=== PATIENT | male | born 1950 | race Caucasian/White ===

== ENCOUNTER 2019-01-29 11:13 | Emergency (ER) | payer OTHER ==
--- NOTE | 2019-01-29 11:18 | PDOC ---
History of Present Illness - General Chief Complaint: Sore Throat Stated Complaint: sore throat and chest congestion Time Seen by Provider: 01/29/19 11:15 History Source: Patient Exam Limitations: No Limitations - History of Present Illness Initial Comments: 01/29/19 12:13 Patient is a 68M with history of eczema (on Dupilumab -IL4 inhibitor) here today complaining of cough for 1 day. Patient complains of associated subjective fevers, chills, and pain in chest with coughing. Denies shortness of breath. Has +sick contact in nephew. Denies abdominal pain, dysuria, leg swelling, history of blood clots. Past History - Past Medical History Allergies/Adverse Reactions: Allergies Allergy/AdvReac Type Severity Reaction Status Date / Time No Known Allergies Allergy Verified 01/29/19 11:14 Home Medications: Ambulatory Orders Amox-Tr/K Cl [Augmentin - 875Mg Tablet] 1 tab PO BID #14 tablet 01/29/19 Doxycycline Hyclate 100 mg PO BID #14 tablet 01/29/19 Review of Systems - Review of Systems Able to Perform ROS?: Yes Comments:: 01/29/19 12:16 GENERAL/CONSTITUTIONAL: No fever or chills. No weakness. HEAD, EYES, EARS, NOSE AND THROAT: No change in vision. No sore throat. CARDIOVASCULAR: No chest pain or shortness of breath RESPIRATORY: +cough, no wheezing, or hemoptysis. GASTROINTESTINAL: No nausea, vomiting, diarrhea or constipation. GENITOURINARY: No dysuria, frequency, or change in urination. MUSCULOSKELETAL: No joint or muscle swelling or pain. No neck or back pain. SKIN: No rash NEUROLOGIC: No headache, vertigo, loss of consciousness, or change in strength/ sensation. ENDOCRINE: No increased thirst. No abnormal weight change HEMATOLOGIC/LYMPHATIC: No anemia, easy bleeding, or history of blood clots. ALLERGIC/IMMUNOLOGIC: No hives or skin allergy. *Physical Exam - Physical Exam Comments: 01/29/19 12:17 GENERAL: Awake, alert, and fully oriented, in no acute distress, coughing HEAD: No signs of trauma, normocephalic, atraumatic EYES: PERRLA, EOMI, sclera anicteric, conjunctiva clear ENT: Auricles normal inspection, hearing grossly normal, nares patent, oropharynx clear without exudates. Moist mucosa NECK: Normal ROM, supple, no lymphadenopathy, JVD, or masses LUNGS: No distress, speaks full sentences, clear to auscultation bilaterally HEART: Regular rate and rhythm, normal S1 and S2, no murmurs, rubs or gallops, peripheral pulses normal and equal bilaterally. ABDOMEN: Soft, nontender, normoactive bowel sounds. No guarding, no rebound. No masses EXTREMITIES: Normal inspection, Normal range of motion, no edema. No clubbing or cyanosis. NEUROLOGICAL: Cranial nerves II through XII grossly intact. Normal speech, normal gait, no focal sensorimotor deficits SKIN: Warm, Dry, normal turgor, no rashes or lesions noted. ED Treatment Course - LABORATORY CBC & Chemistry Diagram: 01/29/19 11:52 01/29/19 11:52 Medical Decision Making - Medical Decision Making 01/29/19 12:17 Patient is 68M with history of eczema here today with cough, some chest pain. Vitals normal and stable. Chest pain atypical for cardiac issue, but given patient's age will evaluate. Blood cultures drawn due to immunologic drug. 01/29/19 12:45 CBC shows leukocytosis CMP reassuring. Trop negative EKG shows NSR with rate of 77. No st elevation/depressions. Normal axis. Normal intervals. No significant t wave abnormalities. CXR shows increased lung markings concerning for atypical pneumonia. Given WBC, CXR, cough and ?immunocompromised state, will cover with augmentin and doxy. 01/29/19 12:52 Given return precautions, instructed to f/u with PCP in 2-3 days. *DC/Admit/Observation/Transfer Diagnosis at time of Disposition: Pneumonia - Discharge Dispostion Disposition: HOME Condition at time of disposition: Good Decision to Admit order: No - Prescriptions Prescriptions: Amox-Tr/K Cl [Augmentin - 875Mg Tablet] 1 tab PO BID #14 tablet Doxycycline Hyclate 100 mg PO BID #14 tablet - Referrals Referrals: Isidro Perea MD [Primary Care Provider] - - Patient Instructions Printed Discharge Instructions: DI for Pneumonia -- Adult Additional Instructions: Please follow up with your primary care provider in the next 2-3 days. Please return if you have any new, worsening or concerning symptoms, especially increasing pain, fever, and shortness of breath. - Post Discharge Activity
[2019-01-29 11:25] VITALS: TEMP 98.1; BMI 25.7
--- NOTE | 2019-01-29 11:33 | PDOC ---
Attending Attestation - Resident Resident Name: MarklexisMicah - ED Attending Attestation I have performed the following: I have examined & evaluated the patient, The case was reviewed & discussed with the resident, I agree w/resident's findings & plan, Exceptions are as noted - HPI HPI: 01/29/19 11:32 68y M hx kun croft presents with complaint of uri like symptoms for a day and malaise. Pt notes to increased cough, congtesion since eysterday. The pt endorses mild chest tightness when he coughs, but non otherwise, endorses subjective fever/chills yesterday. Denies any hemoptysis, cp/sob on exertion, n/ v, diaphoresis, abd pain, back pain, leg swelling, calf pain, urinary symptoms, diarrhea, melena, bpr. Pt endorses sick contacts through his nephew who had URI like symptoms. PMD Gair - Physicial Exam PE: 01/29/19 12:03 GENERAL: The patient is awake, alert, and fully oriented, Nontoxic - in no acute distress. HEAD: Normocephalic, atraumatic. EYES: extraocular movements intact, sclera anicteric, conjunctiva clear. ENT: Normal voice, Moist mucous membranes. NECK: Normal range of motion, supple LUNGS: Breath sounds equal, clear to auscultation bilaterally. No wheezes, no rhonchi, no rales. HEART: Regular rate and rhythm, normal S1 and S2 without murmur, rub or gallop. ABDOMEN: Soft, nontender, normoactive bowel sounds. No guarding, no rebound. . No CVA tenderness EXTREMITIES: Normal range of motion, no edema. NEUROLOGICAL: No facial assymetry, Normal speech, PSYCH: Normal mood, normal affect. SKIN: Warm, Dry, normal turgor - Medical Decision Making 01/29/19 12:03 suspect viral syndome vs pna vs influenza will ck labs, cxr will reassess 01/29/19 12:57 pts labs reviewed noted for leukocytosis of 15 with left shift no signs of over pneumonic process on cxr though will treat pt with course of abx for clinical pna will have pt fu with pmd return precautions were discussed
[2019-01-29 12:02] LABS: BASO % 1.5 % (0-2.0); EOS % 0.4 % (0-4.5); HEMATOCRIT 45.6 % (35.4-49); HEMOGLOBIN 15.2 GM/dl (11.7-16.9); LYMPH % 10.1 % (8-40); MCH 30.7 pg (25.7-33.7); MCHC 33.3 g/dl (32.0-35.9); MEAN CELL VOLUME 92.2 fl (80-96); MEAN PLT VOLUME 7.9 fl (7.5-11.1); PLATELET COUNT 255 K/MM3 (134-434); RBC 4.94 M/mm3 (4.00-5.60); WHITE BLOOD COUNT 15.5 K/mm3 (4.0-10.8)
[2019-01-29 12:14] VITALS: BP 152/90; PULSE 85
[2019-01-29 12:24] LABS: ALBUMIN 3.8 g/dl (3.4-5.0); ALK PHOS 67 U/L (45-117); ANION GAP 9 MMOL/L (8-16); BILIRUBIN,TOTAL 1.4 mg/dl (0.2-1); BLOOD UREA NITROGEN 15 mg/dl (7-18); CALCIUM 8.8 mg/dl (8.5-10); CHLORIDE 100 mmol/L (98-107); CO2 22 mmol/L (21-32); CREATININE 0.9 mg/dl (0.55-1.3); GLUCOSE,RANDOM 142 mg/dl (74-106); POTASSIUM 3.7 mmol/L (3.5-5.1); SGOT/AST 27 U/L (15-37); SGPT/ALT 21 U/L (13-61); SODIUM 131 mmol/L (136-145); TOT PROT 7.6 g/dl (6.4-8.2)
[2019-01-29 12:29] LABS: INR 1.21 (0.82-1.09); PROTHROMBIN TIME (PATIENT) 13.5 SEC (10.2-13.0)
--- NOTE | 2019-01-29 12:35 | EKG ---
Test Reason : Blood Pressure : / mmHG Vent. Rate : 077 BPM Atrial Rate : 077 BPM P-R Int : 156 ms QRS Dur : 082 ms QT Int : 362 ms P-R-T Axes : 076 -28 061 degrees QTc Int : 409 ms NORMAL SINUS RHYTHM NORMAL ECG WHEN COMPARED WITH ECG OF 29-OCT-1997 10:31, NO SIGNIFICANT CHANGE WAS FOUND Confirmed by MAURICIO SIERRA MD ([id number]) on 01/29/2019 12:35:44 PM Referred By: SHANNON SPEARS Confirmed By:MAURICIO SIERRA MD
[2019-01-29] MEDS ORDERED: AMOX TR/POT CLAV 875MG/125MG TABLETS (FP) PO ONE (12:51)
[2019-01-29] MEDS ORDERED: DOXYCYCLINE HYCLATE 100 MG CAPSULE PO ONE ×2 (12:51→12:53)
[2019-01-29] MEDS ORDERED: AMOX TR/POT CLAV 875MG/125MG TABLETS (FP) ONE (12:53)
== END 2019-01-29 13:00 | disposition home or self-care (01) ==
LOC: FER 11:13
DX: J18.9 Pneumonia, unspecified organism (principal); L30.9 Dermatitis, unspecified
CPT/HCPCS: 36415; 71046-TC-FY; 80053; 84484; 85025; 85610; 87040; 93005; 99282-25

== ENCOUNTER 2021-05-15 07:13 | Inpatient (IN) | payer OTHER ==
[2021-05-15 07:35] VITALS: BMI 25.7
[2021-05-15 08:06] LABS: EOS % 4.5 % (0-4.5); HEMATOCRIT 42.1 % (35.4-49); HEMOGLOBIN 14.7 GM/dl (11.7-16.9); LYMPH % 32.3 % (8-40); MCH 31.8 pg (25.7-33.7); MEAN CELL VOLUME 91.1 fl (80-96); MEAN PLT VOLUME 8.1 fl (7.5-11.1); MONO % 9.5 % (3.8-10.2); NEUT % 52.7 % (42.8-82.8); PLATELET COUNT 263 10^3/uL (134-434); RBC 4.62 M/mm3 (4.00-5.60); RDW 12.8 % (11.9-15.9); WHITE BLOOD COUNT 6.4 K/mm3 (4.0-10.8)
[2021-05-15 08:23] LABS: ALBUMIN 4.3 g/dl (3.4-5.0); ALK PHOS 55 U/L (45-117); ANION GAP 15 MMOL/L (8-16); BILIRUBIN,TOTAL 1.8 mg/dl (0.2-1); CALCIUM 9.2 mg/dl (8.5-10); CHLORIDE 101 mmol/L (98-107); CHOLESTEROL 260 mg/dl (50-200); CO2 21 mmol/L (21-32); CREATININE 0.9 mg/dl (0.55-1.3); GLUCOSE,RANDOM 165 mg/dl (74-106); HDL CHOLESTEROL 68 mg/dl (40-60); LDL CHOLESTEROL (ONLY DFH) 177 mg/dl (5-100); SGOT/AST 17 U/L (15-37); SGPT/ALT 14 U/L (13-61); SODIUM 137 mmol/L (136-145); TOT PROT 7.6 g/dl (6.4-8.2); TRIGLYCERIDES 73 mg/dl (0-150)
[2021-05-15 08:29] LABS: ACTIVATED PTT 28.9 SECONDS (25.2-36.5); INR 1.07 (0.82-1.09); PROTHROMBIN TIME (PATIENT) 11.9 SEC (10.2-13.0)
[2021-05-15] MEDS ORDERED: SODIUM CHLORIDE 0.9% 500 ML INFUS.BAG IV ONE (11:31)
[2021-05-15] MEDS ORDERED: ATORVASTATIN CA 80 MG TABLET (FP) PO ONE (11:45)
[2021-05-15] MEDS ORDERED: ATORVASTATIN CA 80 MG TABLET (FP) ONE (12:02)
[2021-05-15] MEDS ORDERED: ASPIRIN/DIPYRIDAMOLE 25 MG/200 MG CAPSULE PO ONE (19:34)
[2021-05-16 07:51] LABS: ALBUMIN 3.6 g/dl (3.4-5.0); BLOOD UREA NITROGEN 13.3 mg/dL (7-18); CALCIUM 8.5 mg/dL (8.5-10.1); CREATININE 0.9 mg/dL (0.55-1.3); MAGNESIUM 1.9 mg/dL (1.8-2.4)
[2021-05-16 07:53] LABS: BILIRUBIN,TOTAL 1.3 mg/dL (0.2-1); TOT PROT 6.9 g/dl (6.4-8.2)
[2021-05-16 08:11] LABS: BASO % 0.6 % (0-2.0); EOS % 3.1 % (0-4.5); HEMATOCRIT 41.4 % (35.4-49); HEMOGLOBIN 14.3 GM/dL (11.7-16.9); LYMPH % 21.9 % (8-40); MCH 31.2 pg (25.7-33.7); MCHC 34.5 g/dl (32.0-35.9); MEAN CELL VOLUME 90.5 fl (80-96); MEAN PLT VOLUME 7.9 fl (7.5-11.1); MONO % 6.9 % (3.8-10.2); NEUT % 67.5 % (42.8-82.8); PLATELET COUNT 254 10^3/uL (134-434); RBC 4.57 M/mm3 (4.00-5.60); RDW 13.6 % (11.9-15.9); WHITE BLOOD COUNT 6.9 K/mm3 (4.0-10.0)
[2021-05-16] MEDS ORDERED: PT OWN MED DRAWER 7, Y5N ONE (21:11)
[2021-05-16] MEDS: ATORVASTATIN CA 80 MG TABLET (FP) PO SCH (21:46)
[2021-05-16] MEDS: ASPIRIN/DIPYRIDAMOLE 25 MG/200 MG CAPSULE PO SCH (21:46)
[2021-05-17 06:40] LABS: BASO % 0.5 % (0-2.0); EOS % 1.5 % (0-4.5); HEMATOCRIT 42.4 % (35.4-49); HEMOGLOBIN 14.6 GM/dL (11.7-16.9); LYMPH % 10.5 % (8-40); MCH 31.3 pg (25.7-33.7); MCHC 34.3 g/dl (32.0-35.9); MEAN PLT VOLUME 8.1 fl (7.5-11.1); MONO % 5.4 % (3.8-10.2); NEUT % 82.1 % (42.8-82.8); PLATELET COUNT 254 10^3/uL (134-434); RBC 4.66 M/mm3 (4.00-5.60); RDW 13.8 % (11.9-15.9); WHITE BLOOD COUNT 10.9 K/mm3 (4.0-10.0)
[2021-05-17 07:24] LABS: ALBUMIN 3.6 g/dl (3.4-5.0); BLOOD UREA NITROGEN 18.6 mg/dL (7-18); CALCIUM 8.6 mg/dL (8.5-10.1)
[2021-05-17 07:26] LABS: BILIRUBIN,TOTAL 1.3 mg/dL (0.2-1); CREATININE 0.9 mg/dL (0.55-1.3)
[2021-05-17] MEDS ORDERED: PT OWN MED DRAWER 7, Y5N ONE ×2 (09:31→20:31)
[2021-05-17] MEDS: ASPIRIN/DIPYRIDAMOLE 25 MG/200 MG CAPSULE PO SCH ×2 (10:06→21:28)
[2021-05-17] MEDS: ATORVASTATIN CA 80 MG TABLET (FP) PO SCH (21:28)
[2021-05-18] MEDS: ASPIRIN/DIPYRIDAMOLE 25 MG/200 MG CAPSULE PO SCH ×2 (09:36→21:20)
[2021-05-18] MEDS ORDERED: PT OWN MED DRAWER 7, Y5N ONE (21:14)
[2021-05-18] MEDS: ATORVASTATIN CA 80 MG TABLET (FP) PO SCH (21:20)
[2021-05-19 06:58] LABS: BASO % 0.7 % (0-2.0); EOS % 3.9 % (0-4.5); HEMATOCRIT 41.9 % (35.4-49); HEMOGLOBIN 14.4 GM/dL (11.7-16.9); LYMPH % 20.9 % (8-40); MCH 30.9 pg (25.7-33.7); MCHC 34.4 g/dl (32.0-35.9); MEAN CELL VOLUME 89.9 fl (80-96); MEAN PLT VOLUME 8.5 fl (7.5-11.1); MONO % 6.9 % (3.8-10.2); NEUT % 67.6 % (42.8-82.8); PLATELET COUNT 261 10^3/uL (134-434); RBC 4.66 M/mm3 (4.00-5.60); RDW 13.4 % (11.9-15.9); WHITE BLOOD COUNT 9.6 K/mm3 (4.0-10.0)
[2021-05-19 07:28] LABS: CALCIUM 8.8 mg/dL (8.5-10.1)
[2021-05-19 07:29] LABS: ALBUMIN 3.5 g/dl (3.4-5.0); BLOOD UREA NITROGEN 17.6 mg/dL (7-18)
[2021-05-19 07:32] LABS: PHOSPHOROUS 4.2 mg/dL (2.5-4.9)
[2021-05-19] MEDS ORDERED: PT OWN MED DRAWER 7, Y5N ONE (08:48)
[2021-05-19] MEDS: ASPIRIN/DIPYRIDAMOLE 25 MG/200 MG CAPSULE PO SCH (09:04)
[2021-05-19 14:56] VITALS: BP 139/73; PULSE 67; TEMP 98.2
== END 2021-05-19 17:11 | DRG 65 ==
LOC: FER 07:13 → J4W 23:50
PROVIDERS: ATTEND Internal Medicine
DX: I63.9 Cerebral infarction, unspecified (principal); G81.91 Hemiplegia, unspecified affecting right dominant side; R47.1 Dysarthria and anarthria; I10 Essential (primary) hypertension; E78.5 Hyperlipidemia, unspecified
CPT/HCPCS: 36415; 70450-TC; 70496-TC; 70551-TC; 80053; 80061; 81003; 82136; 82550; 82607; 82962; 83036; 83735; 83918; 84100; 84443; 84484; 85025; 85610; 85651; 85730; 86780; 93005; 93306-TC; 93880-TC; 97116-GP; 97162-GP; 99285-25; C9803; U0003; U0005